=== PATIENT | female | born 1940 | race Caucasian/White ===

== ENCOUNTER → 2016-07-15 | Outpatient (CLI) | payer MEDICARE, OTHER ==
[~2016-07-15] MED LIST: ASP81CT PO; ASP81TEC PO; ATEN50TA PO; Amlodipine Besylate PO; CALC625T68 PO; CIPR500T78 PO; CLOP75TA28; CPR500T PO; FEXO-104 PO; FEXO180T84 PO; GABA-488 PO; GBPN300C PO; HYDR-2890 PO; LISI10TA PO; METF500T4; METO-272; METO25TA PO; MTF500T PO; NITR0.4T; PNT40TEC PO; PRAV10TA; TRIA1CAP4 PO; TRIA1TAB3 PO; [UNRECOGNIZED DRUG - OTHER]
--- OUTSIDE RECORDS SUMMARY | 2016-07-15 15:08 | XMS REPORT | Continuity of Care Document ---
Author Author [facility] Organization [facility] Address Unknown Phone Unavailable Care Team Providers Care Boiler Setter Name Role Phone DAMASO HERNÁNDEZ MD PCP Insurance Providers Payer Name Policy Number Subscriber Name Relationship [employer] [id number] Africa Betancourt 18 Self / Same As Patient Enter Insurance Name [id number] [place] Betancourt 18 Self / Same As Patient Advance Directives Directive Response Recorded Date/Time Advance Directives No 11/26/13 2:00am Health Care Power of Silk Screen Cutter No 11/26/13 2:00am Organ Donor No 11/26/13 2:00am Problems No known problems or medical conditions. Medications Medication Dose Route Sig Days/Qty Instructions Order Date Discontinued Date Status Atenolol 1 Each PO DAILY 09/08/11 02/29/12 Discontinued Triamterene/Hydrochlorothiazid 1 Each PO 09/08/11 11/26/13 Discontinued Fexofenadine HCl 180 Mg PO 09/08/11 02/29/12 Discontinued Hydrocodone Bit/Acetaminophen 1 Tab PO EVERY 4HRS PRN PAIN 09/08/11 Active Metformin HCl (Glucophage) 500 Mg PO TWICE A DAY 09/08/11 11/27/13 Discontinued Ciprofloxacin 1 Tab PO TWICE A DAY 7 Days 09/08/11 02/29/12 Discontinued [tekozenadine] 02/29/12 11/25/13 Discontinued Gabapentin 300 Mg PO BEDTIME 02/29/12 11/26/13 Discontinued Metoprolol Succinate 25 Mg PO DAILY 30 Qty 11/26/13 11/26/13 Discontinued Metoprolol Succinate 25 Mg PO DAILY @ 1700 11/26/13 Active Gabapentin 300 Mg PO BEDTIME 11/26/13 11/26/13 Discontinued Triamterene/Hydrochlorothiazid 0.5 Tab PO DAILY TAKES 1/2 (37.5-25MG) TABLET 11/26/13 11/26/13 Discontinued Fexofenadine Hcl 180 Mg PO DAILY 11/26/13 Active Triamterene/Hydrochlorothiazid 0.5 Tab PO DAILY 1 Qty 11/26/13 Active Calcium Polycarbophil 1,000 Mg PO TWICE A DAY 1 Qty 11/26/13 Active [Amlodipine Besylate] 10 Mg PO DAILY 30 Qty 11/27/13 Active Aspirin 81 Mg PO DAILY 30 Qty 11/27/13 Active Pantoprazole Sodium 40 Mg PO DAILY@0700 30 Qty 11/27/13 Active Social History Social History Problem Response Recorded Date/Time Alcohol Use Denies Use 11/26/2013 2:00am Recreational Drug Use No 11/26/2013 2:00am Hospital Discharge Instructions No hospital discharge instructions. Plan of Care No plan of care. Functional Status No functional status results. Allergies, Adverse Reactions, Alerts Allergen Type Severity Reaction Status Last Updated Penicillins ([id number]) Allergy Mild Active 09/08/11 Sulfa (Sulfonamide Antibiotics) ([id number]) Allergy Unknown Active Immunizations Name Given Type Date of Pneumonia Vaccine 02/27/13 Historical Vital Signs No known vital signs results. Results No known relevant diagnostic tests, laboratory data and/or discharge summary. Procedures No known history of procedures. Encounters Encounter Location Date/Time Discharged Recurring Via [facility] 05/20/14 12:03pm
--- NOTE | 2016-07-19 08:41 | ECHOCARDIOGRAPHY REPORT ---
PROCEDURE PHYSICIAN: RISA DENNY DATE OF PROCEDURE: 07/15/2016 TWO DIMENSIONAL ECHOCARDIOGRAM REPORT PRIMARY PHYSICIAN: Dr. Farias OTHER PHYSICIAN: REFERRING PHYSICIAN: ORDERING PHYSICIAN: Dr. Denny INDICATION FOR THE PROCEDURE: Shortness of breath. MEASUREMENTS DERIVED VALUES LV DIAMETER (LAX) NORMALS NORMALS Diastolic 4.3 (3.6-5.2) Eject. Fract. (60%+/-6%) Systolic (2.3-3.9) Diastolic Vol. % Shortening (0.22-0.42) Systolic Vol. Aortic Root 4 IVS THICKNESS Diastolic 1.1 (0.6-1.1) LVPW THICKNESS Diastolic 1.2 (0.6-1.1) LA DIAMETER Systolic 4.9 (2.1-3.7) DESCRIPTION: Two-dimensional echocardiography shows normal global left ventricular systolic function with normal regional wall motion. Aortic, mitral and tricuspid valve leaflets show good leaflet excursion. Aortic valve appears to be trileaflet. There is mild aortic valve sclerosis and calcification. There appears to mild mitral annular calcification. Doppler imaging shows mild aortic regurgitation and trivial tricuspid regurgitation. Mitral inflow is consistent with grade 1 diastolic dysfunction of the left ventricle. Left ventricular ejection fraction is estimated to be approximately 65%. There is no Doppler evidence of significant valvular stenosis. There is no evidence of any significant intracardiac shunt on this transthoracic echocardiographic study. Inferior vena cava appears to be of normal size and exhibits normal inspiratory collapse. Pulmonary artery systolic pressure is estimated to be approximately 25 to 30 mmHg. CONCLUSION: 1. Normal global systolic function with an ejection fraction of approximately 65%. 2. Mild aortic regurgitation. 3. Trivial tricuspid regurgitation. 4. Mild enlargement of the left atrium. 5. Mild diastolic dysfunction of the left ventricle. 6. Pulmonary artery systolic pressure is estimated to be 25 to 30 mmHg. 7. Mild mitral annular calcification, mild aortic valve sclerosis without evidence of any significant valvular stenosis. Job ID: [id number] Dictated Date: 07/18/2016 11:18:06 Acute Care Nursing Assistant Date: 07/19/2016 08:36:15 / dao
== END ==
LOC: CARD 15:04
PROVIDERS: ATTEND Internal Medicine Cardiovascular Disease
DX: R06.09 Other forms of dyspnea (principal); I27.2 Other secondary pulmonary hypertension; E11.9 Type 2 diabetes mellitus without complications
CPT/HCPCS: 93306

== ENCOUNTER → 2016-07-20 | Outpatient (CLI) | payer MEDICARE, OTHER ==
[~2016-07-20] VITALS: Ht 167.6 cm; Wt 109.8 kg
[~2016-07-20] MED LIST changes: +CATHETER FLUSH 10 ML SYR IV PRN; +REGADENOSON 0.4 MG/5 ML SYR (LEXISCAN) IV ONE
[2016-07-20 13:35] VITALS: BP 217/89
--- OUTSIDE RECORDS SUMMARY | 2016-07-20 13:37 | XMS REPORT | Continuity of Care Document ---
Author Author [facility] Organization [facility] Address Unknown Phone Unavailable Care Team Providers Care State Director Name Role Phone DAMASO HERNÁNDEZ MD PCP Insurance Providers Payer Name Policy Number Subscriber Name Relationship [employer] [id number] [place] Betancourt 18 Self / Same As Patient Enter Insurance Name [id number] [place] Betancourt 18 Self / Same As Patient Advance Directives Directive Response Recorded Date/Time Advance Directives No 11/26/13 2:00am Health Care Power of Procurement Cost Coordinator No 11/26/13 2:00am Organ Donor No 11/26/13 [...] Type Severity Reaction Status Last Updated Penicillins ([id number]) Allergy Mild Active 09/08/11 Sulfa (Sulfonamide Antibiotics) ([id number]) Allergy Unknown Active Immunizations Name Given Type Date of Pneumonia Vaccine 02/27/13 Historical Vital Signs No known vital signs results. Results No known relevant diagnostic tests, laboratory data and/or discharge summary. Procedures No known history of procedures. Encounters Encounter Location Date/Time Discharged Recurring Via [facility] 05/20/14 12:03pm
[2016-07-20 13:39] VITALS: BP 192/80
[2016-07-20 13:41] VITALS: BP 186/73
--- NOTE | 2016-07-21 08:17 | STRESS TEST ---
PROCEDURE PHYSICIAN: RISA DENNY DATE OF PROCEDURE: 07/20/2016 RESTING AND POST REGADENOSON TECHNETIUM 99M TETROFOSMIN SPECT CT IMAGING: ORDERING PHYSICIAN: Dr. Denny PRIMARY PHYSICIAN: Dr. Farias CLINICAL DIAGNOSES: 1. Shortness of breath. 2. Diabetes. Baseline images were carried out after injection of 9.9 mCi of technetium 99 tetrofosmin. This was followed by 0.4 mg of regadenoson and 30.4 mCi of technetium 99m for stress imaging. The electrocardiogram showed incomplete right bundle branch block with isolated premature ventricular contractions. It did not change significantly with the regadenoson infusion. Following regadenoson infusion, she had transient shortness of breath and lightheadedness which resolved in a few minutes. Review of images at rest and following stress, does not indicate any distinct perfusion defects consistent with significant myocardial ischemia or infarction. Gated images show normal global left ventricular systolic function with normal regional wall motion. Left ventricular ejection fraction is calculated to be 73%. Left ventricular end-diastolic volume is 75 mL. TID is absent (0.89). CONCLUSIONS: 1. No evidence of significant myocardial ischemia or infarction on this study. 2. Normal regional wall motion. 3. Normal global left ventricular systolic function with a calculated ejection fraction of 73%. 4. Normal left ventricular cavity size. Job ID: [id number] Dictated Date: 07/20/2016 18:26:41 Short Filler Bunch Machine Operator Date: 07/21/2016 08:14:00 / dao
== END ==
LOC: CARD 12:33
PROVIDERS: ATTEND Internal Medicine Cardiovascular Disease
DX: I27.2 Other secondary pulmonary hypertension (principal); E13.9 Other specified diabetes mellitus without complications; R06.09 Other forms of dyspnea
CPT/HCPCS: 78452; 93017

== ENCOUNTER → 2016-08-04 | Outpatient (CLI) | payer MEDICARE, OTHER ==
[~2016-08-04] MED LIST changes: -CATHETER FLUSH 10 ML SYR IV PRN; -REGADENOSON 0.4 MG/5 ML SYR (LEXISCAN) IV ONE
--- OUTSIDE RECORDS SUMMARY | 2016-08-04 15:14 | XMS REPORT | Continuity of Care Document ---
Author Author [facility] Organization [facility] Address Unknown Phone Unavailable Care Team Providers Care Donor Services Specialist Name Role Phone DAMASO HERNÁNDEZ MD PCP Insurance Providers Payer Name Policy Number Subscriber Name Relationship [employer] [id number] [place] Betancourt 18 Self / Same As Patient Enter Insurance Name [id number] [place] Betancourt 18 Self / Same As Patient Advance Directives Directive Response Recorded Date/Time Advance Directives No 11/26/13 2:00am Health Care Power of Loading And Unloading Supervisor No 11/26/13 2:00am Organ Donor No 11/26/13 [...] Type Severity Reaction Status Last Updated Penicillins ([id number]) Allergy Mild Active 09/08/11 Sulfa (Sulfonamide Antibiotics) ([id number]) Allergy Unknown Active Immunizations Name Given Type Date of Pneumonia Vaccine 02/27/13 Historical Vital Signs No known vital signs results. Results No known relevant diagnostic tests, laboratory data and/or discharge summary. Procedures No known history of procedures. Encounters Encounter Location Date/Time Discharged Recurring Via [facility] 05/20/14 12:03pm
--- NOTE | 2016-08-04 18:25 | Diagnostic Imaging Report ---
EXAMINATION: Pelvic ultrasound. INDICATION: Pelvic fullness. COMPARISON: There are no previous studies available for comparison. FINDINGS: The uterus is not enlarged. The uterus measures 7.1 x 5.1 x 4.1 cm. Along the anterior aspect of the uterine body, there is a small 1.3 x 0.9 x 1.4 cm hypoechoic lesion. I suspect that this is a small fibroid. There is no other focal mass involving the uterus. The endometrial lining is not thickened measuring 4 mm. The ovaries were not well visualized. There is a small irregular fluid collection containing a septation in the right adnexa, however. This measures 3.8 x 1.6 x 2.8 cm. This does not have the typical appearance of an ovarian cyst. In reviewing the previous CT abdomen/pelvis exam of 11/21/2014, there was a similar-sized fluid collection in the right lower quadrant. Consequently, this could represent a cyst arising from the right ovary. If further study is desired, then repeat CT abdomen/pelvis exam would be recommended. There is no solid pelvic mass or free fluid collection identified. IMPRESSION: 1. The uterus is not enlarged, but there is a small fibroid along the anterior aspect of the uterine body/fundus. 2. The small fluid collection in the right adnexa is of uncertain etiology. Considerations and recommendations as above. 3. There is no acute pelvic abnormality noted otherwise. Dictated by: Dictated on workstation # [id number]
== END ==
LOC: RAD 15:11
PROVIDERS: ATTEND Family Medicine
DX: R14.0 Abdominal distension (gaseous) (principal); R19.07 Generalized intra-abdominal and pelvic swelling, mass and lump
CPT/HCPCS: 76830; 76856

== ENCOUNTER → 2017-08-23 | Outpatient (CLI) | payer MEDICARE, OTHER ==
--- NOTE | 2017-08-23 20:10 | Diagnostic Imaging Report ---
INDICATION: Low back pain. 3 views were obtained. FINDINGS: The alignment is normal. There is multilevel degenerative disc disease at L1-L2, L3-L3-4, L4-L5 and L5-S1. No spondylolysis or spondylolisthesis. No fractures are identified. Vertebral body heights are well-maintained. There is lower lumbar hypertrophic degenerative facet disease. IMPRESSION: Diffuse lumbar spondylosis and multilevel degenerative disc disease. Dictated by: Dictated on workstation # [id number]
== END ==
LOC: RAD 19:44
PROVIDERS: ATTEND Nurse Practitioner Family
DX: M47.816 Spondylosis without myelopathy or radiculopathy, lumbar region (principal); M51.36 Other intervertebral disc degeneration, lumbar region
CPT/HCPCS: 72100

== ENCOUNTER 2017-09-23 16:53 | Outpatient (RCR) | payer MEDICARE, OTHER | END 2017-09-30 | disposition home or self-care (01) | LOC: CR3 16:53 | PROVIDERS: ATTEND Internal Medicine Cardiovascular Disease | DX: Z29.8 Encounter for other specified prophylactic measures (principal) ==

== ENCOUNTER 2017-11-04 16:47 | Outpatient (RCR) | payer MEDICARE, OTHER | END 2017-11-13 | disposition home or self-care (01) | LOC: CR3 16:47 | PROVIDERS: ATTEND Internal Medicine Cardiovascular Disease | DX: Z29.8 Encounter for other specified prophylactic measures (principal) ==

== ENCOUNTER 2017-12-16 17:04 | Outpatient (RCR) | payer MEDICARE, OTHER | END 2017-12-18 | disposition home or self-care (01) | LOC: CR3 17:04 | PROVIDERS: ATTEND Internal Medicine Cardiovascular Disease | DX: Z29.8 Encounter for other specified prophylactic measures (principal) ==

== ENCOUNTER 2018-02-11 17:01 | Emergency (ER) | payer MEDICARE, OTHER ==
[~2018-02-11] VITALS: Ht 167.6 cm; Wt 113.4 kg
--- NOTE | 2018-02-11 18:10 | ED EENT ---
History of Present Illness General Chief Complaint: Ear Problems Stated Complaint: TICKING SOUND IN EAR Nursing Triage Note: PT STATES HAS TICKING IN R EAR SINCE THIS AM Source: patient Exam Limitations: no limitations History of Present Illness Date Seen by Provider: Feb 11, 2018 Time Seen by Provider: 17:53 Initial Comments The patient presents to the ER by Sergey conveyance with chief complaint she's having some kicking in her ear and a pulsatile manner that is constant started last night. Nothing she can do has suppressed yet. She was concerned about its sudden onset area and nothing is changed. She's had no new medicines. She does have a history of high blood pressure but no history of stroke. She is on a beta dale, statin, Plavix, antihistamine. She's not put anything in her ears are felt a pressure in her ears pain or fevers or chills. No discharge. No history of ear surgery. She tried calling her doctor and got a hold of the on- call doctor informed her if she was concerned about it then come to the ER. Allergies and Home Medications Allergies Coded Allergies: Penicillins (Verified Allergy, Mild, 09/08/11) Sulfa (Sulfonamide Antibiotics) (Verified Allergy, Unknown, 11/26/13) Home Medications Ciprofloxacin HCl 500 Mg Tablet, 500 MG PO BID Prescribed by: VENTURA JENSEN on 11/22/14 0515 Fexofenadine Hcl 180 Mg Tablet, 180 MG PO DAILY, (Reported) Hydrocodone Bit/Acetaminophen 1 Each Tablet, 1 TAB PO Q4H PRN for PAIN, ( Reported) Patient Home Medication List Home Medication List Reviewed: Yes Review of Systems Review of Systems Constitutional: No chills, No diaphoresis Eyes: Denies Blindness, Denies Blurred Vision, Denies Drainage Ears: Denies Dizziness, Denies Pain; Tinnitus; Denies Bloody Discharge, Denies Clear Discharge Nose: denies clots, denies congestion Mouth: denies clots, denies loose teeth, denies pain, denies swelling Throat: denies pain, denies swelling Respiratory: No cough Cardiovascular: No chest pain, No Hx of Intervention, No syncope Past Achdjex-Qpvjio-Yazzsg Hx Patient Social History Alcohol Use: Denies Use Recreational Drug Use: No Smoking Status: Never a Smoker Recent Foreign Travel: No Contact w/Someone Who Travel: No Recent Infectious Disease Expo: No Recent Hopitalizations: No Physical Abuse: No Sexual Abuse: No Immunizations Up To Date Date of Pneumonia Vaccine: Feb 27, 2013 Past Medical History Surgeries: Yes (BREAST BX) Appendectomy, Breast, Orthopedic, Tonsillectomy Respiratory: No Cardiac: Yes (pulmonary HTN) Angina Neurological: No Reproductive Disorders: No Gastrointestinal: Yes Chronic Constipation Musculoskeletal: Yes Arthritis Endocrine: Yes Diabetes, Non-Insulin dep Cancer: No Psychosocial: No Integumentary: No Blood Disorders: No Family Medical History No Pertinent Family Hx Physical Exam Vital Signs Vital Signs - First Documented 02/11/18 17:29 Temp 97.4 Pulse 70 Resp 18 B/P (MAP) 165/83 (110) Pulse Ox 95 Height, Weight, BMI Height: 5'6.00" Weight: 250lbs. 0.0oz. 113.604259in; 39.1 BMI Method:Stated General Appearance: WD/WN, no apparent distress Eyes: bilateral eye normal inspection, bilateral eye PERRL, bilateral eye EOMI Ears: bilateral ear auricle normal, bilateral ear canal normal, bilateral ear TM normal Nose: normal inspection, active bleeding, discharge Mouth/Throat: normal mouth inspection, pharynx normal, dental tenderness Neck: non-tender, full range of motion, supple, normal inspection Cardiovascular: normal peripheral pulses, regular rate, rhythm, no edema Respiratory: chest non-tender, lungs clear, normal breath sounds, no respiratory distress, no accessory muscle use Neurologic/Psychiatric: leather goods maker II-XII nml as tested, no motor/sensory deficits, alert, oriented x 3, other (anxious) Progress/Results/Core Measures Results/Orders Vital Signs/I&O 02/11/18 17:29 Temp 97.4 Pulse 70 Resp 18 B/P (MAP) 165/83 (110) Pulse Ox 95 Blood Pressure Mean: 110 Progress Progress Note : Time: 18:24 Progress Note While her symptoms of new onset tinnitus may herald some kind of vascular issue considering they sound like vascular tinnitus they are not constant she only hears them at times was very quiet and she's not had any neurologic change and by history or physical exam. They be reasonable to give her referral to ENT for outpatient follow-up as they may consider things like further physical exam, MRI etc. but there is no immediate evidence of an emergency at this time. We discussed this plan with her and she is okay with this plan. Differential includes recent hearing loss, vascular malformations, a benign vascular tumors, atherosclerosis given her history of using statins. Departure Impression Primary Impression: Vascular origin tinnitus Disposition: 01 HOME, SELF-CARE Condition: Stable Departure-Patient Inst. Decision time for Depature: 18:25 Referrals: CHIDI BARAHONA MD, HOLLY A MD (PCP/Family) Primary Care Physician Patient Instructions: Tinnitus (Ringing in the Ears) Add. Discharge Instructions: Tuesday morning call and request an appointment with Dr. Barahona for follow-up your new onset tinnitus. Return to the ER if you're tinnitus becomes constant regardless of noise level, worsening or changing, accompanied by chest pain, headache, vision changes or other worrisome, neurologic symptoms. Continue to use your Flonase twice a for the next 2 weeks. All discharge instructions reviewed with patient and/or family. Voiced understanding. Copy Copies To 1: CHIDI BARAHONA MD, TITUS J Feb 11, 2018 18:10
[2018-02-11 18:45] VITALS: BP 165/83
== END 2018-02-11 18:45 | disposition home or self-care (01) ==
LOC: EDUNIT# 17:01 → ER 17:03
DX: H93.13 Tinnitus, bilateral (principal); E11.9 Type 2 diabetes mellitus without complications; I27.0 Primary pulmonary hypertension; Z79.02 Long term (current) use of antithrombotics/antiplatelets; Z88.2 Allergy status to sulfonamides; Z88.0 Allergy status to penicillin; Z90.89 Acquired absence of other organs; Z87.19 Personal history of other diseases of the digestive system
CPT/HCPCS: 99282

== ENCOUNTER 2018-03-24 16:55 | Outpatient (RCR) | payer MEDICARE, OTHER | END 2018-04-16 | disposition home or self-care (01) | LOC: CR3 16:55 | PROVIDERS: ATTEND Internal Medicine Cardiovascular Disease | DX: Z29.8 Encounter for other specified prophylactic measures (principal) ==

== ENCOUNTER → 2018-05-29 | Outpatient (CLI) | payer MEDICARE, OTHER ==
--- NOTE | 2018-05-31 09:58 | Diagnostic Imaging Report ---
Digital mammogram. Bilateral screening with 3-D tomosynthesis and CAD. The study was compared to prior exams of 05/28/2016, 12/11/2014 and 11/06/2013. At this time there are no current complaints. FINDINGS: The fibroglandular tissue in both breasts is heterogeneously dense. This does limit the sensitivity of this exam. Overall, there does not appear to have been any significant change when compared to the prior study. No primary or secondary sign of malignancy is noted. IMPRESSION: There is no radiographic evidence for malignancy. ACR BI-RADS Category 1: Negative. Result letter will be mailed to the patient. Note: At least 10% of breast cancer is not imaged by mammography. Dictated by: Dictated on workstation # [id number]
== END ==
LOC: RAD 11:12
PROVIDERS: ATTEND Family Medicine
DX: Z12.31 Encounter for screening mammogram for malignant neoplasm of breast (principal)
CPT/HCPCS: 77067

== ENCOUNTER 2018-06-16 16:47 | Outpatient (RCR) | payer MEDICARE, OTHER | END 2018-06-18 | disposition home or self-care (01) | LOC: CR3 16:47 | PROVIDERS: ATTEND Internal Medicine Cardiovascular Disease | DX: Z29.8 Encounter for other specified prophylactic measures (principal) ==

== ENCOUNTER 2018-07-24 17:09 | Outpatient (RCR) | payer MEDICARE, OTHER | END 2018-07-30 | disposition home or self-care (01) | LOC: CR3 17:09 | PROVIDERS: ATTEND Internal Medicine Cardiovascular Disease | DX: Z29.8 Encounter for other specified prophylactic measures (principal) ==

== ENCOUNTER 2018-09-08 16:39 | Outpatient (RCR) | payer MEDICARE, OTHER | END 2018-09-10 | disposition home or self-care (01) | LOC: CR3 16:39 | PROVIDERS: ATTEND Internal Medicine Cardiovascular Disease | DX: Z29.8 Encounter for other specified prophylactic measures (principal) ==

== ENCOUNTER 2018-10-06 16:41 | Outpatient (RCR) | payer MEDICARE, OTHER | END 2018-10-11 | disposition home or self-care (01) | LOC: CR3 16:41 | PROVIDERS: ATTEND Internal Medicine Cardiovascular Disease | DX: Z29.8 Encounter for other specified prophylactic measures (principal) ==

== ENCOUNTER → 2018-10-06 | Outpatient (CLI) | payer MEDICARE, OTHER | LOC: CARD 14:17 | PROVIDERS: ATTEND Nurse Practitioner Family | DX: I45.19 Other right bundle-branch block (principal); R06.09 Other forms of dyspnea; G47.33 Obstructive sleep apnea (adult) (pediatric); I10 Essential (primary) hypertension; I08.0 Rheumatic disorders of both mitral and aortic valves | CPT/HCPCS: 93306 ==

== ENCOUNTER 2018-12-15 16:38 | Outpatient (RCR) | payer MEDICARE, OTHER | END 2018-12-20 | disposition home or self-care (01) | LOC: CR3 16:38 | PROVIDERS: ATTEND Internal Medicine Cardiovascular Disease | DX: Z29.8 Encounter for other specified prophylactic measures (principal) ==

== ENCOUNTER 2019-01-08 17:07 | Outpatient (RCR) | payer MEDICARE, OTHER | END 2019-01-21 | disposition home or self-care (01) | LOC: CR3 17:07 | PROVIDERS: ATTEND Internal Medicine Cardiovascular Disease | DX: Z29.8 Encounter for other specified prophylactic measures (principal) ==

== ENCOUNTER → 2019-02-05 | Outpatient (CLI) | payer MEDICARE, OTHER ==
[~2019-02-05] MED LIST changes: +RT-ALBUTEROL SULF 2.5 MG/3 ML PRE-MIX VIAL INH ONE
== END ==
LOC: RT 15:29
PROVIDERS: ATTEND Nurse Practitioner Family
DX: J44.9 Chronic obstructive pulmonary disease, unspecified (principal); J30.9 Allergic rhinitis, unspecified; G47.33 Obstructive sleep apnea (adult) (pediatric); G47.36 Sleep related hypoventilation in conditions classified elsewhere
CPT/HCPCS: 94060; 94640; 94726; 94729

== ENCOUNTER 2019-02-23 17:02 | Outpatient (RCR) | payer MEDICARE, OTHER ==
[~2019-02-23 17:02] MED LIST changes: -RT-ALBUTEROL SULF 2.5 MG/3 ML PRE-MIX VIAL INH ONE
== END 2019-02-25 | disposition home or self-care (01) ==
LOC: CR3 17:02
PROVIDERS: ATTEND Internal Medicine Cardiovascular Disease
DX: Z29.8 Encounter for other specified prophylactic measures (principal)

== ENCOUNTER 2019-03-30 16:55 | Outpatient (RCR) | payer MEDICARE, OTHER | END 2019-04-01 | disposition home or self-care (01) | LOC: CR3 16:55 | PROVIDERS: ATTEND Internal Medicine Cardiovascular Disease | DX: Z29.8 Encounter for other specified prophylactic measures (principal) ==

== ENCOUNTER 2019-05-07 16:47 | Outpatient (RCR) | payer MEDICARE, OTHER | END 2019-05-20 | disposition home or self-care (01) | LOC: CR3 16:47 | PROVIDERS: ATTEND Internal Medicine Cardiovascular Disease | DX: Z29.8 Encounter for other specified prophylactic measures (principal) ==

== ENCOUNTER 2019-05-19 07:25 | Emergency (ER) | payer MEDICARE, OTHER ==
[~2019-05-19] VITALS: Ht 162.5 cm; Wt 113.6 kg
[2019-05-19 08:09] LABS: BASOPHILS % (AUTO) 1 % (0-10); EOSINOPHILS # (AUTO) 0.3 10^3/uL (0.0-0.3); EOSINOPHILS % (AUTO) 4 % (0-10); HEMATOCRIT 39 % (35-52); HEMOGLOBIN 12.4 G/DL (11.5-16.0); LYMPHOCYTES # (AUTO) 2.2 X 10^3 (1.0-4.0); LYMPHOCYTES % (AUTO) 26 % (12-44); MEAN CORPUSCULAR HEMOGLOBIN 29 PG (25-34); MEAN CORPUSCULAR HGB CONC 32 G/DL (32-36); MEAN CORPUSCULAR VOLUME 90 FL (80-99); MEAN PLATELET VOLUME 11.4 FL (7.4-10.4); MONOCYTES % (AUTO) 12 % (0-12); NEUTROPHILS # (AUTO) 4.9 X 10^3 (1.8-7.8); NEUTROPHILS % (AUTO) 58 % (42-75); PLATELET COUNT 236 10^3/uL (130-400); RED CELL DISTRIBUTION WIDTH 12.9 % (10.0-14.5); WHITE BLOOD COUNT 8.5 10^3/uL (4.3-11.0)
[2019-05-19 08:19] LABS: INR 0.9 (0.8-1.4); PROTHROMBIN TIME PATIENT 12.5 SEC (12.2-14.7)
--- NOTE | 2019-05-19 08:30 | ED EENT ---
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 Pt reports taking Plavix. Pt had nose clamp in place upon arrival. Source: patient, family Exam Limitations: no limitations History of Present Illness Date Seen by Provider: May 19, 2019 Time Seen by Provider: 08:06 Initial Comments This 79-year-old female presents with right-sided epistaxis (home approximately an hour prior to presentation to the emergency department. The patient has had similar episodes in the past from the left side requiring packing. The patient is on Plavix for her mitral valve from Dr. Denny. Patient has had no associated fever significant nasal drainage or change in medication. After discussion with patient it would appear that she has an irregular heartbeat and this may be why she is on the Plavix. The patient is using her Plavix qod. Allergies and Home Medications Allergies Coded Allergies: Penicillins (Verified Allergy, Mild, 09/08/11) Sulfa (Sulfonamide Antibiotics) (Verified Allergy, Unknown, 11/26/13) Home Medications Ciprofloxacin HCl 500 Mg Tablet, 500 MG PO BID Prescribed by: VENTURA JENSEN on 11/22/14 0515 Fexofenadine Hcl 180 Mg Tablet, 180 MG PO DAILY, (Reported) Hydrocodone Bit/Acetaminophen 1 Each Tablet, 1 TAB PO Q4H PRN for PAIN, (Reported) Patient Home Medication List Home Medication List Reviewed: Yes Review of Systems Review of Systems Constitutional: No chills Eyes: No Symptoms Reported Ears: No Symptoms Reported Nose: see HPI, clots, epistaxis Mouth: no symptoms reported Throat: no symptoms reported Respiratory: no symptoms reported Cardiovascular: see HPI Gastrointestinal: no symptoms reported : No Musculoskeletal: no symptoms reported Skin: no symptoms reported Neurological: No Symptoms Reported Hematologic/Lymphatic: No Symptoms Reported Immunological/Allergic: no symptoms reported Past Cfnzmbm-Aavtll-Duezrb Hx Past Med/Social Hx: Reviewed Nursing Past Med/Soc Hx Patient Social History Alcohol Use: Denies Use Recreational Drug Use: No 2nd Hand Smoke Exposure: No Recent Foreign Travel: No Contact w/Someone Who Travel: No Recent Infectious Disease Expo: No Recent Hopitalizations: No Immunizations Up To Date Date of Pneumonia Vaccine: Feb 27, 2013 Past Medical History Surgeries: Yes (BREAST BX) Appendectomy, Breast, Orthopedic, Tonsillectomy Respiratory: No Cardiac: Yes (pulmonary HTN) Angina Neurological: No Reproductive Disorders: No Gastrointestinal: Yes Chronic Constipation Musculoskeletal: Yes Arthritis Endocrine: Yes Diabetes, Non-Insulin dep Cancer: No Psychosocial: No Integumentary: No Blood Disorders: No Family Medical History No Pertinent Family Hx Physical Exam Vital Signs Vital Signs - First Documented 05/19/19 07:28 Temp 36.7 Pulse 68 Resp 18 B/P (MAP) 229/98 (141) Pulse Ox 95 O2 Delivery Room Air Height, Weight, BMI Height: 5'6.00" Weight: 250lbs. 0.0oz. 113.913726ke; 43.00 BMI Method:Stated General Appearance: WD/WN, no apparent distress Eyes: bilateral eye normal inspection Ears: bilateral ear auricle normal Nose: other (the patient demonstrated small amount of blood in the oropharynx and right nostril.) Mouth/Throat: other (blood in the oral pharynx of the small amount.) Neck: non-tender, normal inspection Cardiovascular: regular rate, rhythm Respiratory: chest non-tender Gastrointestinal: normal bowel sounds Neurologic/Psychiatric: no motor/sensory deficits, alert, normal mood/affect Skin: normal color, warm/dry Progress/Results/Core Measures Results/Orders My Orders Orders - VINH NAVA MD Cbc With Automated Diff (05/19/19 08:00) Protime With Inr (05/19/19 08:00) Vital Signs/I&O 05/19/19 07:28 Temp 36.7 Pulse 68 Resp 18 B/P (MAP) 229/98 (141) Pulse Ox 95 O2 Delivery Room Air Blood Pressure Mean: 141 Progress Progress Note : Time: 08:26 Progress Note We treated the patient by having her blow the clots from both nostrils. We held pressure to the distal half of the nose for 5 minutes. Patient reported that she was still having bleeding down the back of her throat. Examination of the oral pharynx demonstrated only a small amount of bleeding present. Nasal speculum exam demonstrated no bleeding from Kiesselbach's plexus. A nasal rocket 7.5 cm was placed in the right nostril and distended using approximately 2 mL of tap water. Patient was observed for the next 30 minutes without further bleeding. Consultation was undertaken with . Recommendations were made to the patient to see Dr. Barahona on Tuesday for reevaluation and probable removal of the nasal rocket. Since the patient takes her Plavix every other day and is not due for her next dose until Tuesday I asked that she wait until she see ENT, Dr. Barahona, on Tuesday for close follow-up. I invited her to return to the emergency department should any further problems or questions. Departure Impression Primary Impression: Epistaxis Disposition: HOME, SELF-CARE Condition: Improved Departure-Patient Inst. Decision time for Depature: 08:29 Referrals: CHIDI BARAHONA MD, HOLLY A MD (PCP/Family) Primary Care Physician RISA DENNY MD FACP FAC CCDS Patient Instructions: Nosebleeds (DC) Add. Discharge Instructions: Close follow-up with Dr. Barahona on Tuesday. Return to the emergency department if you have any undue pain or further nasal bleeding. Hold your Plavix until Tuesday (the next scheduled dose) until follow-up with Drs. Barahona on Eduin. All discharge instructions reviewed with patient and/or family. Voiced understanding. VINH NAVA MD May 19, 2019 08:30
[2019-05-19 08:35] VITALS: BP 201/86
== END 2019-05-19 08:40 | disposition home or self-care (01) ==
LOC: EDUNIT# 07:25 → ER 07:26
DX: R04.0 Epistaxis (principal); E11.9 Type 2 diabetes mellitus without complications; Z88.0 Allergy status to penicillin; Z88.2 Allergy status to sulfonamides; Z90.49 Acquired absence of other specified parts of digestive tract; Z90.89 Acquired absence of other organs
CPT/HCPCS: 36415; 85025; 85610

== ENCOUNTER 2019-06-18 16:02 | Outpatient (RCR) | payer MEDICARE, OTHER | END 2019-07-04 | disposition home or self-care (01) | LOC: CR3 16:02 | PROVIDERS: ATTEND Internal Medicine Cardiovascular Disease | DX: Z29.8 Encounter for other specified prophylactic measures (principal) ==

== ENCOUNTER 2019-07-26 14:50 | Outpatient (RCR) | payer MEDICARE, OTHER | END 2019-07-26 16:30 | disposition home or self-care (01) | PROVIDERS: ATTEND Family Medicine | DX: M62.81 Muscle weakness (generalized) (principal); R26.89 Other abnormalities of gait and mobility; M25.511 Pain in right shoulder; M25.512 Pain in left shoulder; I10 Essential (primary) hypertension; E11.9 Type 2 diabetes mellitus without complications; M19.91 Primary osteoarthritis, unspecified site; Z88.0 Allergy status to penicillin; Z88.2 Allergy status to sulfonamides ==

== ENCOUNTER 2019-08-06 16:00 | Outpatient (RCR) | payer MEDICARE, OTHER | END 2019-09-05 | disposition home or self-care (01) | LOC: CR3 16:00 | PROVIDERS: ATTEND Internal Medicine Cardiovascular Disease | DX: Z29.8 Encounter for other specified prophylactic measures (principal) ==

== ENCOUNTER → 2020-08-11 | Outpatient (CLI) | payer MEDICARE, OTHER ==
--- NOTE | 2020-08-12 12:24 | Diagnostic Imaging Report ---
INDICATION: Routine screening. Comparison is made with prior mammogram 05/29/2018 and 05/28/2016. 2-D and 3-D bilateral screening mammography was performed with CAD. Both breasts show scattered fibroglandular densities. Benign nodular densities in both breasts appears stable. No spiculated mass or malignant appearing microcalcifications are seen. There are benign parenchymal and vascular calcifications bilaterally. Axillae are unremarkable. IMPRESSION: BI-RADS Category 2 No mammographic features suspicious for malignancy are identified. ACR BI-RADS Category 2: Benign findings. Result letter will be mailed to the patient. Note: At least 10% of breast cancer is not imaged by mammography. Dictated by: Dictated on workstation # [id number]
== END ==
LOC: RAD 15:30
PROVIDERS: ATTEND Family Medicine
DX: Z12.31 Encounter for screening mammogram for malignant neoplasm of breast (principal)
CPT/HCPCS: 77063; 77067

== ENCOUNTER → 2021-08-19 | Outpatient (CLI) | payer MEDICARE, OTHER | LOC: CARD 15:00 | PROVIDERS: ATTEND Family Medicine | DX: I08.0 Rheumatic disorders of both mitral and aortic valves (principal) | CPT/HCPCS: 93306 ==

== ENCOUNTER → 2022-07-29 | Outpatient (CLI) | payer MEDICARE, OTHER ==
--- NOTE | 2022-07-29 17:47 | Diagnostic Imaging Report ---
INDICATION: Chronic bilateral shoulder pain. COMPARISON: None. FINDINGS: Multiple radiographic views of bilateral shoulders were obtained. Left shoulder: There are advanced severe osteoarthritic changes of the left shoulder. This consists of severe narrowing of the glenohumeral joint space with sclerotic remodeling to the articular surfaces and osteophyte formations. There is also moderate narrowing of the acromiohumeral joint space. No acute fracture or dislocation is seen. Osseous structures are intact. Included portions of the left hemithorax are clear. No unexpected radiopaque foreign body is seen. Right shoulder: Mild osteoarthritic changes of the right shoulder are also noted, but there is no acute fracture or dislocation. Osseous structures are intact. Joint spaces are maintained. No unexpected radiopaque foreign body is seen. Included portions of the right hemithorax are clear. IMPRESSION: 1. Severe osteoarthritic changes of the left shoulder and mild degenerative changes on the right. 2. No acute fracture or dislocation is seen on either side. Dictated by: Dictated on workstation # [id number]
== END ==
LOC: RAD 16:40
PROVIDERS: ATTEND Family Medicine
DX: M19.011 Primary osteoarthritis, right shoulder (principal); M19.012 Primary osteoarthritis, left shoulder

== ENCOUNTER → 2023-01-07 | Outpatient (CLI) | payer MEDICARE, OTHER ==
[2023-01-07 15:44] LABS: HEMATOCRIT 39 % (35-52); MEAN CORPUSCULAR HEMOGLOBIN 30 pg (25-34); MEAN CORPUSCULAR HGB CONC 33 g/dL (32-36); MEAN CORPUSCULAR VOLUME 90 fL (80-99); MEAN PLATELET VOLUME 11.7 fL (9.0-12.2); PLATELET COUNT 276 10^3/uL (130-400); WHITE BLOOD COUNT 8.3 10^3/uL (4.3-11.0)
[2023-01-07 15:55] LABS: BILIRUBIN,TOTAL 0.8 MG/DL (0.1-1.0); CALCIUM 9.5 MG/DL (8.5-10.1); CREATININE SERUM 0.8 MG/DL (0.60-1.30); TOTAL PROTEIN 6.8 GM/DL (6.4-8.2)
--- NOTE | 2023-01-07 16:29 | Diagnostic Imaging Report ---
INDICATION: HYPOXIA COMPARISON: 11/26/2013 FINDINGS: Frontal and lateral views of the chest demonstrate normal heart size and pulmonary vascularity. The lungs are clear. There are no signs of infiltrate, pleural effusions or pneumothoraces. The visualized osseous structures show no acute abnormalities. IMPRESSION: 1. No acute process. No signs of infiltrates, effusions or pneumothoraces. Dictated by: Dictated on workstation # [id number]
== END ==
LOC: RAD 14:57
PROVIDERS: ATTEND Family Medicine
DX: R09.02 Hypoxemia (principal)
CPT/HCPCS: 36415; 71046; 80053; 85027